=== PATIENT | female | born 1955 | race Caucasian/White ===

== ENCOUNTER → 2016-09-25 | Day surgery (SDC) | payer BC ==
[~2016-09-25] MED LIST: ACULAR LS5 ML OP; ANTIVERT PO; BENADRYL PO; CLARITIN10 MG PO; COLACE PO; EFFEXOR75 M2 PO; ERYTHROMYCIN O3.5 G1 OD; FLOMAX0.4 M1 PO; LORTAB PO; MOTION RELIEF25 MG PO; OMEPRAZOLE40 M1 PO; PHENERGAN25 M1 PO; PREVACID PO; PYRIDIUM PO; TYLENOL #3 PO; ZOLOFT PO; ZYRTEC-D TABLE1 EACH
--- NOTE | ~2016-09-25 | OR ---
Unit #: [id number] #: [id number] Patient: BRENNEN DOSS [id number] [address] [address] [id number] O MR#: [id number] NAME: BRENNEN DOSS. ROOM: Date of Procedure: 09/25/2016 Admission Date: 09/25/2016 Surgeon: Len Russell M.D. : 1955 Attending Physician: Reece Mabry M.D. Primary Care Physician: Peng Reyez M.D. OPERATIVE REPORT JOB NOTE: CC: [facility] PREOPERATIVE DIAGNOSES 1. Rectal bleeding. 2. Personal history of colon cancer. 3. Status post sigmoid colectomy for colon cancer. POSTOPERATIVE DIAGNOSES 1. Rectal bleeding. 2. Personal history of colon cancer. 3. Status post sigmoid colectomy for colon cancer. ANESTHESIA Monitored anesthesia care. FINDINGS The patient was found to have a normal anastomosis and normal colon to cecum, mild to moderate internal and external hemorrhoids. PROCEDURE PERFORMED Colonoscopy to cecum. SPECIMENS None. COMPLICATIONS None apparent. CONDITION The patient tolerated the procedure well. INDICATIONS FOR PROCEDURE The patient is a 61-year-old white female, who presents at this time for evaluation of intermittent blood in the stool. The patient has a personal history of colon cancer. She is status post sigmoid colectomy 4 to 5 years ago. She did not require chemotherapy or radiation. She had her last colonoscopy in 2003. There was no abnormality found. The patient presents at this time for evaluation by colonoscopy. DESCRIPTION OF PROCEDURE After obtaining informed consent, the patient was brought to the endoscopy suite. After adequate monitored anesthesia care, had the colonoscope Unit #: [id number] #: [id number] Patient: BRENNEN DOSS placed through the anus and slowly advanced to the level of the cecum without difficulty with the lumen always in view. The cecum was normal as was the ileocecal valve. The ascending colon was normal as was the hepatic flexure, transverse colon, splenic flexure, and descending colon down to the level of the anastomosis. The anastomosis was widely patent and there was no evidence of recurrence. The rectosigmoid and rectum were all within normal limits. On retroflexing in the rectum to the anorectal junction, there were some [id number] internal hemorrhoids. On pulling back through the anal canal, there was some mild to moderate external hemorrhoids. On digital examination, there was good sphincter tone, no masses palpable. The patient went from the endoscopy suite to recovery area in stable condition. RECOMMENDATIONS High-fiber diet, lots of liquids, tucks or wipes p.r.n. Follow up as needed. Dictated by... Viraj Wu/farheen TD: 09/25/2016 22:05 JOB #: [id number] [facility] OPERATIVE REPORT X Len Russell MD X PROCEDURE OPERATIVE NOTE
== END | disposition home or self-care (01) ==
LOC: COPS 10:25
PROVIDERS: Surgery
PROC: 0DJD8ZZ Inspection of Lower Intestinal Tract, Via Natural or Artificial Opening Endoscopic (ICD-10-PCS; principal; 2016-09-25 12:30)
DX: K64.8 Other hemorrhoids (principal); K64.4 Residual hemorrhoidal skin tags; Z85.038 Personal history of other malignant neoplasm of large intestine; Z98.0 Intestinal bypass and anastomosis status; R10.9 Unspecified abdominal pain; K21.9 Gastro-esophageal reflux disease without esophagitis; K44.9 Diaphragmatic hernia without obstruction or gangrene; F41.1 Generalized anxiety disorder; H83.09 Labyrinthitis, unspecified ear; Z78.0 Asymptomatic menopausal state; R39.11 Hesitancy of micturition; Z79.899 Other long term (current) drug therapy; F17.200 Nicotine dependence, unspecified, uncomplicated; Z87.09 Personal history of other diseases of the respiratory system; Z98.51 Tubal ligation status; Z80.3 Family history of malignant neoplasm of breast; Z80.42 Family history of malignant neoplasm of prostate; Z80.9 Family history of malignant neoplasm, unspecified; Z88.2 Allergy status to sulfonamides; Z88.8 Allergy status to other drugs, medicaments and biological substances; Z88.1 Allergy status to other antibiotic agents